=== PATIENT | male | born 1955 | race Caucasian/White ===

== ENCOUNTER 2022-04-28 01:45 | Day surgery (SDC) | payer MEDICARE, SELFPAY ==
[2022-04-12 13:19] VITALS: BMI 29.0
--- NOTE | 2022-04-27 14:29 | PM.HPGS ---
History of Present Illness History of Present Illness Consent: Risks, benefits, and alternatives have been discussed and questions answered. Patient agrees to proceed with procedure. Chief complaint: hx of colon polyps Narrative: Jose Miguel Bear is a 66 year old male Who was referred for colon cancer screening. He had a polyp removed about 5 years ago. He also has had polyps prior to that. Review of Systems Review of Systems: All systems reviewed & are unremarkable except as noted in HPI and below PMFSH Social History Social History Smoking status: Never smoker Drinks per week: 3 Substance use: never Substance use type: does not use Living arrangements: with family Spiritual care concerns: No Meds Home Medications and Allergies Home Medications Medication Instructions Recorded Confirmed Type sodium sul 1.479 gram-potas ch See Rx Instructions PO PER PKG DIR 03/11/22 04/28/22 Rx 0.188 gram-magnes sul 0.225 gram #24 tabs tablet (Sutab) amlodipine 10 mg tablet 10 mg PO DAILY 04/12/22 04/12/22 History dorzolamide 22.3 mg-timolol 6.8 22.3 ml EACH EYE DAILY 04/12/22 04/12/22 History mg/mL eye drops irbesartan 300 mg tablet 300 mg PO DAILY 04/12/22 04/12/22 History spironolactone 300 mg PO DAILY 04/12/22 04/12/22 History Allergies Allergy/AdvReac Type Severity Reaction Status Date / Time No Known Allergies Allergy Verified 04/28/22 06:21 Exam Resp: Auscultation: clear to auscultation bilaterally Cardio: Rate: regular rate Rhythm: regular rhythm GI: GI Palp: Yes Soft to palpation and No Tenderness to palpation present (GI) Assessment and Plan Assessment and plan (1) Colon cancer screening: Code(s): Z12.11 - Encounter for screening for malignant neoplasm of colon Status: Acute Assessment and Plan: Colonoscopy with possible biopsy or polypectomy or cautery or injection of substances.
[2022-04-28 06:23] VITALS: BP 120/71; PULSE 71; RESP 20; TEMP 36.5; O2SAT 97; BMI 29.0
[2022-04-28] MEDS: LACTATED RINGERS 1,000 ML 150 ML IV CONT (06:34)
--- NOTE | 2022-04-28 07:26 | P.PNAN_ITS ---
Anes - Initial Pre Proc Eval Procedure: Operation Date: 04/28/22 07:30 Proposed Procedures p Screening Colonoscopy - Jorge Garcia MD Date/Time: 04/28/22 07:26 Surgeon: Jorge Garcia MD Pre Op Diagnosis: hx of colon polyps Patient Data Age: 66 Gender: M Height: 1.85 m Weight: 99.7 kg Last Vital Signs Temp 97.7 F 04/28/22 06:23 Pulse 71 04/28/22 06:23 Resp 20 04/28/22 06:23 BP 120/71 04/28/22 06:23 Pulse Ox 97 04/28/22 06:23 O2 Del Method Room Air 04/28/22 06:23 Allergies Allergy/AdvReac Type Severity Reaction Status Date / Time No Known Allergies Allergy Verified 04/28/22 06:21 Home Medications Medication Instructions Recorded Confirmed Type sodium sul 1.479 gram-potas ch See Rx Instructions PO PER PKG DIR 03/11/22 04/28/22 Rx 0.188 gram-magnes sul 0.225 gram #24 tabs tablet (Sutab) amlodipine 10 mg tablet 10 mg PO DAILY 04/12/22 04/12/22 History dorzolamide 22.3 mg-timolol 6.8 22.3 ml EACH EYE DAILY 04/12/22 04/12/22 History mg/mL eye drops irbesartan 300 mg tablet 300 mg PO DAILY 04/12/22 04/12/22 History spironolactone 300 mg PO DAILY 04/12/22 04/12/22 History Patient hx anesthesia problems: none Family hx anesthesia problems: none Results Review: All pre-operative results and documents have been reviewed as part of the pre- operative evaluation. [facility] Social History Social History Smoking status: Never smoker Drinks per week: 3 Substance use: never Substance use type: does not use Living arrangements: with family Spiritual care concerns: No Anes - Eval Final PreProcedure Day of Procedure 04/28/22 07:26 Patient weight: overweight Heart: regular rate and rhythm Lungs: clear to auscultation Airway: Mallampati scale class II Neurological: alert and oriented Last oral intake: >/= 8 hours ASA classification: III Emergent: no Anesthetic plan: proceed Anesthesia type and monitoring: general GIVS and standard monitoring Results Review: All pre-operative results and documents have been reviewed as part of the pre- operative evaluation. Informed Consent: The patient's anesthetic plan and its attendant risks and benefits were discussed with the patient/family/POA. Questions were solicited and answers provided to the satisfaction of the patient/family/POA.
[2022-04-28] MEDS: SIMETHICONE ORAL SUSPENSION 20 MG/0.3 ML 30 ML BOTTLE 0.6 ML IRRIGATION (07:42)
[2022-04-28 07:56] VITALS: BP 87/49; PULSE 75; RESP 17; O2SAT 95
[2022-04-28 08:06] VITALS: BP 99/60; PULSE 60; RESP 19; O2SAT 100
[2022-04-28 08:16] VITALS: BP 108/73; PULSE 61; RESP 18; O2SAT 100
== END 2022-04-28 08:20 | disposition home or self-care (01) ==
PROVIDERS: PCP Emergency Medicine; Visit Provider Internal Medicine Gastroenterology
PROC: 0DJD8ZZ Inspection of Lower Intestinal Tract, Via Natural or Artificial Opening Endoscopic (ICD-10-PCS; CPT 45378; principal; 2022-04-28 07:30)
DX: Z12.11 Encounter for screening for malignant neoplasm of colon (principal); K57.30 Diverticulosis of large intestine without perforation or abscess without bleeding; K62.1 Rectal polyp
CPT/HCPCS: 45385; 45380; 88305; J2704; J7120

== ENCOUNTER → 2023-04-11 11:42 | Outpatient (CLI) | payer MEDICARE, SELFPAY ==
--- NOTE | ~2023-04-11 | XR_ITS ---
XR chest 2V 04/11/2023 12:03 Indication: Pleurisy. Right scapular pain Procedure: 2 view chest Comparison: No prior studies for comparison. Findings: Heart size normal. No focal air space disease, pulmonary edema, pleural effusion or suspect ed pneumothorax. There is scalloping of the left diaphragm. Impression: 1: No acute cardiopulmonary disease. Reviewed, dictated and finalized at location A. Impression: 1: No acute cardiopulmonary disease.
== END ==
PROVIDERS: PCP Emergency Medicine; Visit Provider Emergency Medicine
DX: R09.1 Pleurisy (principal)
CPT/HCPCS: 71046

== ENCOUNTER 2023-04-11 11:54 | Outpatient (CLI) | payer MEDICARE, SELFPAY ==
[2023-04-11 19:59] LABS: D Dimer 0.98 ug/mL (<0.48)
== END 2023-04-11 11:55 | disposition home or self-care (01) ==
LOC: ANHGOSHLAB 11:56
PROVIDERS: PCP Emergency Medicine; Visit Provider Emergency Medicine
DX: R09.1 Pleurisy (principal)
CPT/HCPCS: 36415; 85380

== ENCOUNTER 2023-04-12 16:28 | Outpatient (CLI) | payer MEDICARE, SELFPAY ==
--- NOTE | ~2023-04-12 | CT_ITS ---
EXAMINATION: CTA chest PE protocol DATE: 04/12/2023 17:06 CDT INDICATION: Chest pain with respiration. Elevated d-dimer. TECHNIQUE: Computed tomographic angiography (CTA) of the chest was performed with 100 mL Omnipaque-35 0 intravenous contrast. The dose-length product was 582.54 mGy-cm. Maximum intensity projection 3D-re constructions of the aorta and other arteries were constructed by the technologist on a separate work station. COMPARISON: No prior studies for comparison. FINDINGS: Study is technically adequate. There is pulmonary embolism involving right upper lobe subse gmental pulmonary arteries, small thrombus burden. Heart size normal. No thoracic lymphadenopathy. No significant pleural or pericardial effusion. There is nodular thickening of the adrenal glands, like ly due to bilateral adenomas. There is focal eventration of the left diaphragm. No endobronchial lesi ons. No thoracic lymphadenopathy. No focal airspace disease. No pneumothorax. No endobronchial lesion s. IMPRESSION: 1. Pulmonary embolism right upper lobe subsegmental pulmonary arteries, small thrombus burden. Reviewed, dictated and finalized at location A. IMPRESSION: 1. Pulmonary embolism right upper lobe subsegmental pulmonary arteries, small t hrombus burden.
[2023-04-12 16:51] LABS: Estimated Glomerular Filt Rate 55
== END 2023-04-12 16:29 | disposition home or self-care (01) ==
PROVIDERS: PCP Emergency Medicine; Visit Provider Emergency Medicine
DX: I26.99 Other pulmonary embolism without acute cor pulmonale (principal)
CPT/HCPCS: 71275; Q9967

== ENCOUNTER 2023-08-31 10:40 | Outpatient (CLI) | payer MEDICARE, SELFPAY ==
--- NOTE | ~2023-08-31 | US_ITS ---
EXAMINATION: US venous doppler [facility] DATE: 08/31/2023 11:36 INDICATION: Left lower limb pain. TECHNIQUE: Grayscale ultrasound images without and with compression and Doppler ultrasound images of the left lower extremity veins were obtained. COMPARISON: None. FINDINGS: The visualized portions of left common femoral vein, profunda (deep) femoral vein, femoral vein, popl iteal vein, peroneal veins, posterior tibial veins, and greater saphenous vein outflow are patent. IMPRESSION: 1. No deep venous thrombosis. Reviewed, dictated and finalized at location A. [employer] SALES AGENT
== END 2023-08-31 10:41 | disposition home or self-care (01) ==
PROVIDERS: PCP Emergency Medicine
DX: M79.662 Pain in left lower leg (principal)
CPT/HCPCS: 93971

== ENCOUNTER 2025-02-19 11:37 | Outpatient (CLI) | payer MEDICARE, SELFPAY ==
--- NOTE | ~2025-02-19 | CT_ITS ---
EXAMINATION: CTA chest PE protocol DATE: 02/19/2025 12:35 CDT INDICATION: Chest pain with history of pulmonary embolism. TECHNIQUE: Computed tomographic angiography (CTA) of the chest was performed with 100 mL Omnipaque-35 0 intravenous contrast. The dose-length product was 674.69 mGy-cm. Maximum intensity projection 3D-re constructions of the aorta and other arteries were constructed by the technologist on a separate work station. COMPARISON: CT dated 04/12/2023. FINDINGS: No significant pleural or pericardial abnormality. Small focal Bochdalek hernia containing fat on the left. There is a parapelvic cyst on the left. Fatty infiltration of the liver. No thoracic lymphadenopathy. No significant vascular abnormality of the aorta. Study is technically adequate wit hout evidence for pulmonary embolism. Small hiatal hernia. No endobronchial lesions. No pneumothorax. No focal airspace consolidation. There is nodular adrenal thickening bilaterally, likely related to small underlying adrenal adenomas without significant change from prior study. There is diffuse idiopathic skeletal hyperostosis (DISH) of the thoracic spine. IMPRESSION: 1. No acute cardiopulmonary disease. No evidence for pulmonary embolism. Reviewed, dictated and finalized at location A.
--- OUTSIDE RECORDS SUMMARY | 2025-02-19 11:43 | XMS_ITS | Clinical Summary ---
Author Organization [facility] Address [address] [place] [address] Phone Care Team Providers Care Harvester Operator Name Role Phone Zhao Mayes Primary Care Provider [phone] Jostin Washburn MD Unavailable Allergies Active Allergy Reactions Criticality Noted Date Comments Brimonidine Tartrate-Timolol Other (see Comments) Low 10/24/2018 Also causes burning Netarsudil Other (see Comments) Low 10/24/2018 Redness Also causing burning Medications dorzolamide-stella olol (COSOPT) 22.3-6.8 MG/ML Solution INSTILL 1 DROP INTO BOTH EYES TWICE A DAY 03/23/2023 Active irbesartan (AVAPRO) 300 MG Tablet Take 300 mg by mouth daily. 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 Immunizations Immunization Administration Dates Next Due Covid-19, Mrna, Lnp-s, Pf, 1 00 Mcg Or 50 Mcg Dose (MODERNA) 11/29/2020,10/31/2020 Influenza, Seasonal, Injectable, Undefined 09/20 TDAP Vaccine 09/20/2013 Family History Medical History Relation Name Comments Diabetes Brother Heart Attack Father Colon Cancer Mother Liver Cancer Mother Relation Name Status Comments Brother Alive Father Mother Sister 1 Alive Sister 2 Alive Sister 3 Alive Social History Tobacco Use Types Packs/Day Years Used Date Smoking Tobacco: Former Cigarettes Q uit: 2000 Smokeless Tobacco: Never Tobacco Cessation:Counseling Given: Not Answered Alcohol Use Standard Drinks/Week Comments Yes 4 (1 standard drink = 0.6 oz pur e alcohol) Sex and Gender Information Value Date Recorded Sex Assigned at Not on file Legal Sex Male 11:35 AM CDT Gender Identity Not on file Sexual Orientation Not on file Last Filed Vital Signs Vital Sign Reading Time Taken Comments Blood Pressure 124/80 10/11/2024 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 Pulse 79 10/11/2024 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 Temperature 37 C (98.6 F) 10/11/2024 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 Respiratory Rate 18 10/11/2024 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 Oxygen Saturation 96% 10/11/2024 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 Inhaled Oxygen Concentration - - Weight 109.3 kg (241 lb) 10/11/2024 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 Height 185.4 cm (6' 1) 10/11/2024 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 Body Mass Index 31.8 10/11/2024 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 Plan of Treatment Health Maintenance Due Date Last Done Comments Hepatitis C Virus (HCV) Screening 1955 Pneumococcal Immunization (5 0+ years) (1 of 2 - PCV) 1974 Zoster Immunization (1 of 2) 1974 Colonoscopy 2000 Colorectal Cancer Screening 2000 Cologuard 2005 Immunochemical Fecal Occult Blood 2005 Hepatitis B Immunization (1 of 3 - Risk 3-dose series) 2015 Respiratory Syncytial Virus (RSV) Immunization (Adult) (1 - Risk 60-74 years 1-dose series) 2015 AAA Screening Ultrasound 2020 SARS-COV-2 Immunization (3 - Moderna risk series) 12/27/2020 11/29/2020, 10/31/2020 Td Immunization Every 10 Yea rs (Adults With 1 Tdap) 09/20/2023 09/20/2013 Influenza Immunization (Seas on Ended) 2025 09/20/2013 DTaP/Tdap/Td Immunization Discontinued 09/20/2013 Human Papillomavirus (HPV) Immunization Aged Out No longer eligible based on patient's age to complete this topic Meningococcal Immunization (ACWY) Aged Out No longer eligible based on patient's age to complete this topic Rotavirus Immunization Aged Out No lo nger eligible based on patient's age to complete this topic Insurance MEDICARE C [employer] Care Teams Harvester Operator Relationship Specialty Start Date End Date Zhao Mayes [address] [place] [address] PCP - General Family Medicine 04/19/23 Jostin Washburn MD [address] [place] [address] Consulting Physician Oncology 10/11/24
--- OUTSIDE RECORDS SUMMARY | 2025-02-19 11:44 | XMS_ITS | Referral Summary ---
Author Organization [facility] Address [address] [place] [address] Care Team Providers Care Planer Operator / Grader Name Role Phone Zhao Mayes MD Primary Care Provider [phone] Allergies Active Allergy Reactions Criticality Noted Date Comments Brimonidine-Timolol Redness Low 10/24/2018 Also causes burning Netarsudil Redness Low 10/24/2018 Also causing burning Medications aspirin 81 mg tabletIndicatio ns:heart health Take 81 mg by mouth mining teacher before breakfast Active fenofibrate (TRIGLIDE) 160 mg tabletIndicatio ns:hyperlipidem ia Take 160 mg by mouth daily with breakfast Active amLODIPine (NORVASC) 10 mg tabletIndicatio ns:hypertension Take 10 mg by mouth mining teacher before breakfast 1 Active spironolactone (ALDACTONE) 50 mg tabletIndicatio ns:hypertension Take 50 mg by mouth mining teacher before breakfast 1 Active irbesartan (AVAPRO) 300 mg tabletIndicatio ns:hypertension Take 300 mg by mouth mining teacher before breakfast 1 Active Sutab 1.479-0.188- 0.225 gram tablet 2 Active dorzolamide-stella oloL (COSOPT) 22.3-6.8 mg/mL ophthalmic solution Administer 1 drop into both eyes 2 (two) times a day 10 mL 11 2 Active Active Problems Problem Noted Date Diagnosed Date Combined forms of age-related cataract of both e yes 06/22/2022 Assessment & Plan (06/22/2022 10:55 AM CDT): Approaching VS right eye (OD) NVS OS Mrx dispensed Disorder of filtering bleb 11/26/2021 Assessment & Plan (12/01/2021 3:04 PM CDT): Nice response to needling - will hold on MMC to avoid making conj overly ischemic. Pred to QID now Cont with glc gtts F/U with me 3-4 weeks to start pred taper Change lumigan to xal Qhs OD - pt request cost Assessment & Plan (11/26/2021 12:02 PM DEPLOYMENT TECHNICIAN): IOP OD too high, XEN OS looks and working great rba discussed, rec yag then needling IOP immediately 14.5mmHg OD with moderate bleb. Some MAHAD with mild reflux into AC. Pred Q2hrs. Hold on MMC and if there is hyperemia can add at next visit as long as there is a bleb. F/U 1 week Postop check 01/16/2019 Assessment & Plan (02/06/2019 2:00 PM CDT): POW3 PLACEMENT GLAUCOMA DRAINAGE IMPLANT - XEN with MMC - Right Postoperative instructions were given. The patient is to use: Cont PF QID OD - taper when he returns. D/C atropine Cont holding glaucoma drops OD Cont glaucoma drops OS no eye rubbing Signs, symptoms of retinal detachment, tear, hole, and endophthalmitis were reviewed and the patient is to call immediately for concerns. We discussed that things should improve until they stabilize. Should there be any worsening of pain, vision, or redness the patient is to call. F/U 4-6 weeks For other eye monitor IOP borderline Assessment & Plan (01/23/2019 9:00 AM CDT): POW1 PLACEMENT GLAUCOMA DRAINAGE IMPLANT - XEN with MMC - Right Still hypotonus on atropine. AC shallow with I-K touch peripherally and 2 corneal widths depth centrally. IOP 05. Diffuse bleb. No leak. Will continue present management. Postoperative instructions were given. The patient is to use: Stop oflox Cont PF QID OD Cont atropine BID OD Cont holding glaucoma drops OD Cont glaucoma drops OS Light activity, shield at night, no eye rubbing - patient compliant Signs, symptoms of retinal detachment, tear, hole, and endophthalmitis were reviewed and the patient is to call immediately for concerns. We discussed that things should improve until they stabilize. Should there be any worsening of pain, vision, or redness the patient is to call. Followup 1-2 weeks or sooner prn issues. For other eye, IOP acceptable at this time given less severe disease. Monitor. Assessment & Plan (01/18/2019 10:36 AM CDT): POD1 PLACEMENT GLAUCOMA DRAINAGE IMPLANT - XEN with MMC - Right Postoperative instructions were given. The patient is to use: ofloxacin QID OD Durezol QID OD HOLD glaucoma drops OD Cont glaucoma drops OS Atropine BID and light activity Patient is to wear the shield at bedtime X 1 week. Signs, symptoms of retinal detachment, tear, hole, and endophthalmitis were reviewed and the patient is to call immediately for concerns. We discussed that things should improve until they stabilize. Should there be any worsening of pain, vision, or redness the patient is to call. Followup 1 week as scheduled or sooner prn issues. For other eye, IOP acceptable at this time given less severe disease. Monitor. Primary open angle glaucoma of right eye, severe stage 11/27/2018 Overview (02/04/2022): SP Xen MMC OD 2018, SP Xen MMC OS 2019 S/p YAG/re-needling right eye (OD) 11/26/21 S/p Molteno OD 01/27/22 Assessment & Plan (07/13/2022 11:28 AM CDT): Doing well after molteno OD. New HVF baseline OD today with paracentral stable island of vision. IOP goal low to mid teens. Cont cosopt BID OU F/U Dr. Mendez 3-4 mo. OK to do phaco alone with Dr. Mendez or here for phaco ECP. F/U with me prn Assessment & Plan (06/22/2022 10:53 AM CDT): Excellent control of intraocular pressure (IOP) CPmeds Follow up Bry Assessment & Plan (03/30/2022 8:21 AM CDT): Mac OCT flat OD. Vision near pre-op level through Pinhole. VF was affecting fixation. NS not bad enough to account for vision but it is becomming VS. He does not want surgery for this. MRx in 6 weeks. If IOP > 18 please start one agent back F/U with me in 2-3 mo HVF (10-2) OD Assessment & Plan (03/02/2022 8:29 AM CDT): Tube open, IOP low but no choroidals, bleb is ideal over molteno plate OD. D/C brimonidine OD - cont cosopt as this may help prevent encapsulation. When he returns if IOP still below 10 can change cosopt to brim OD. Taper pred over 3 weeks - IOP check after taper F/U with me IOP check in 4-6 weeks. Assessment & Plan (02/04/2022 8:22 AM CDT): POW #1 s/p Placement Glaucoma Drainage Implant With Scleral Patch Graft - Molteno - Right Today VA OD and IOP OD - Doing well - continue Durezol QID until it runs out, then switch to prednisolone right eye (OD) - send script - stop Moxifloxacin QID OD - Continue cosopt BID OU until tube opens Reviewed signs/symptoms endophthalmitis, RT/RD; patient to call immediately if any worsening vision, pain, redness, flashes/floaters/curtains RTC 3-4 weeks Assessment & Plan (01/28/2022 8:03 AM CDT): POD #1 s/p Placement Glaucoma Drainage Implant With Scleral Patch Graft - Molteno - Right Today VA OD 20/300 and IOP OD 27 - Doing well - Durezol QID OD - Moxifloxacin QID OD - Restart cosopt BID OD - Reviewed signs/symptoms endophthalmitis, RT/RD; patient to call immediately if any worsening vision, pain, redness, flashes/floaters/curtains - No lifting/bending/swimming. Silva shield while sleeping, protective eyewear during day. - RTC 1 week Assessment & Plan (01/14/2022 8:09 AM CDT): SP Xen MMC OD 2018, SP Xen MMC OS 2019 6 week follow-up after YAG/re-needling right eye (OD) - had good initial response with elevation of bleb;but now thick bleb, much more scar than OS. Do not rec needling or revision. RBA discussed, proceed with molteno OD. Diamox 500 mg BID Assessment & Plan (11/26/2021 12:02 PM DEPLOYMENT TECHNICIAN): RBA needling OD discussed. Assessment & Plan (10/15/2021 10:02 AM DEPLOYMENT TECHNICIAN): Presents for HVF/OCT with ganglion cell layer (GCL) - status post (s/p) Xen w/ MMC left eye (OS) - status post (s/p) Xen with MMC right eye (OD) - Today, IOP still too high right eye (OD) - cos2/2, dorz 2/0, lumigan 1/0 - poor tolerance of brimonidine - bleb appearance left eye (OS) better then right eye (OD); flat without much filtration right eye (OD) - non injected Goncalves visual field (HVF) 10/14/21 right eye (OD): reliable, testing fluctuation, slightly worse dense superior and inferior arcuate, splitting fixation left eye (OS): stable INS, superior scatter/partial arcuate pattern Plan: RBA discussed, pt agrees for needling - will yag lumen first OD. If no effect, proceed with phaco bleb revision OD as he is more symptomatic with NS F/U needling OD, IOLM, please read glasses. Assessment & Plan (05/12/2021 2:13 PM CDT): IOP OD too high, on lumigan and timolol. Cannot tolerate brimonidine. Will start dorzolamide BID OD. If IOP not in mid to low teens recommend needling that day. If IOP still not at goal, recommend open conj revision OD given how OS is working well. F/U 4-6 weeks possible needling OD Assessment & Plan (06/17/2020 10:07 AM CDT): Was on 4 classes prior to surgery. IOP near goal on 1 class OS - but given such a young age for severity of disease recommend cosopt BID OU - D/C narajose ramon. Discussed needling - since he does well with drops her prefers this over a procedure. F/U with me in 6 weeks - if IOP in mid teens OK to follow with Dr. Mendez. Assessment & Plan (05/03/2019 7:59 AM CDT): S/p ab externo XEN/MMC 01/17/19 with early hypotony, now resolved Off PF, IOP 12 at goal IOP OS too high, plan XEN - good IOP today, CPM on 3 classes Assessment & Plan (03/06/2019 12:53 PM CDT): --S/p ab externo XEN/MMC 01/17/19 with early hypotony, now resolved Taper PF over 4 weeks. F/U 8 weeks to decide on IOP OS. Primary open angle glaucoma (POAG) of left eye, moderate stage 10/24/2018 Assessment & Plan (06/22/2022 10:54 AM CDT): Excellent intraocular pressure (IOP) left eye (OS) CPmeds Assessment & Plan (10/15/2021 9:52 AM DEPLOYMENT TECHNICIAN): Assessment & Plan (06/23/2021 7:50 AM CDT): IOP near goal - does have some blepharitis - may be drop related but pt would like to cont with dorz. Does not arnie brim. Recheck HVF/OCT. If worse recommend needling - may need open conj revision. Otherwise ok to obs unless IOP creeps higher. F/U 3 mo HVF/OCT with GCL Assessment & Plan (07/29/2020 9:57 AM DEPLOYMENT TECHNICIAN): IOP now near goal OU on cosopt BID OU. Blebs look stable - do not recommend needling now. Discussed that if IOP rises >18mmHg ok to add PGA. If IOP still above goal please send back - can consider tube shunt vs bleb revision in the OR. Discussed this with pt. F/U Dr. Mendez for glaucoma monitoring in 4 mo. Assessment & Plan (01/22/2020 11:35 AM CDT): S/p Xen MMC 11/21/19 OS - Continue to taper off steroids - bleb looks ideal - may have some steroid response. For OD - prefer IOP in mid teens, OS may be ok in high teens. OK to add medications 1 class at a time to goal. Will have patient follow with Dr. Mendez given COVID. Please check HVF at the next visit to re-establish new baseline. F/U with me prn F/U Dr. Mendez 3 mo IOP check. Assessment & Plan (11/29/2019 8:03 AM CDT): POW1 Xen MMC OS Has had slow leak at suture site, seen earlier this week for blurring 2/2 AC heme Leak resolved at W1, no hyphema. Doing well Postoperative instructions were given. The patient is to use: Durezol QID change to PF when out then taper after next visit if conj quiet Patient is to wear the shield at bedtime X 1 week. Signs, symptoms of retinal detachment, tear, hole, and endophthalmitis were reviewed and the patient is to call immediately for concerns. We discussed that things should improve until they stabilize. Should there be any worsening of pain, vision, or redness the patient is to call. F/U 1 month Assessment & Plan (11/26/2019 4:29 PM CDT): POW1 Xen MMC OS Early return today for blurred vision after walking on the treadmill Perhaps some heme in AC based on deposit on inferior cornea but no active bleeding or hyphema. Slow leak at suture site still - keep appointment on . If still active start ointment. Postoperative instructions were given. The patient is to use: Moxifloxacin QID X 1 week Durezol QID Patient is to wear the shield at bedtime X 1 week. Signs, symptoms of retinal detachment, tear, hole, and endophthalmitis were reviewed and the patient is to call immediately for concerns. We discussed that things should improve until they stabilize. Should there be any worsening of pain, vision, or redness the patient is to call. Other eye is status post (s/p) xen (01/2019). Check IOP at W1 after starting lumigan Assessment & Plan (11/22/2019 8:00 AM DEPLOYMENT TECHNICIAN): POD1 Xen MMC OS Postoperative instructions were given. The patient is to use: Moxifloxacin QID X 1 week Durezol QID Will not start ointment unless there is persistent leak Patient is to wear the shield at bedtime X 1 week. Signs, symptoms of retinal detachment, tear, hole, and endophthalmitis were reviewed and the patient is to call immediately for concerns. We discussed that things should improve until they stabilize. Should there be any worsening of pain, vision, or redness the patient is to call. Other eye is status post (s/p) xen (01/2019). Check IOP after starting lumigan Assessment & Plan (09/04/2019 2:19 PM DEPLOYMENT TECHNICIAN): OD: S/p open conj XEN 01/17/19 Off drops and IOP elevated today relative to prior Add Lumigan OD OS: IOP too high on medications again today given optic nerve and VF progression from OD - goal is to prevent vision loss. Plan open conj XEN - ab externo like [employer] - Consulting discussed HVF today stable both eyes OCT today fluctuating, overall stable Assessment & Plan (05/03/2019 7:59 AM CDT): IOP controlled on 3 classes Follow 4 months for IOP check, consider XEN if IOP elevated Assessment & Plan (03/06/2019 12:54 PM CDT): IOP borderline. May need surgery. Likely above goal - consider XEN if doing well at next visit. Prostate cancer 03/03/2018 Social History Tobacco Use Types Packs/Day Years Used Date Smoking Tobacco: Never Smokeless Tobacco: Never Alcohol Use Standard Drinks/Week Comments Yes 5 (1 standard drink = 0.6 oz pur e alcohol) AUDIT-C Answer Date Recorded Q1: How often do you have a drink containing alc ohol? 2-3 times a week 01/18/2022 Q2: How many drinks containi ng alcohol do you have on a typical day when you are drinking? 1 or 2 01/18/2022 Q3: How often do you have si x or more drinks on one occasion? Never 01/18/2022 Sex and Gender Information Value Date Recorded Sex Assigned at Not on file Legal Sex Male 8:39 AM CDT Gender Identity Not on file Sexual Orientation Not on file Last Filed Vital Signs Vital Sign Reading Time Taken Comments Blood Pressure 118/81 01/27/2022 12:00 PM CDT Pulse 57 01/27/2022 12:05 PM CDT Temperature 36 C (96.8 F) 01/27/2022 11:48 AM CDT Respiratory Rate 9 01/27/2022 11:55 AM CDT Oxygen Saturation 100% 01/27/2022 12:05 PM CDT Inhaled Oxygen Concentration - - Weight 106.6 kg (235 lb) 01/18/2022 9:35 AM CDT Height 185.4 cm (6' 1) 01/18/2022 9:35 AM CDT Body Mass Index 31 01/18/2022 9:35 AM CDT Plan of Treatment Not on file Medical Devices Implanted Type Area Dopeman Device Identifier Shelf Expiration Date Model / Serial / Lot [employer] 5513-001 Xen 150um 45um 6mm Treatment System Preload Injector Intraocular Latex Free - [id number] - [id number] Implanted:Qty: 1 on 01/17/2019 by Ian Londono MD at [facility] Other - see comments Right: Eye [employer] [id number] 05/19/2021 5513-001 / [id number] / [id number] Description:Xen Gel stent [employer] 5513-001 Xen 150um 45um 6mm Treatment System Preload Injector Intraocular Latex Free - [id number] - [id number] Implanted:Qty: 1 on 11/21/2019 by Ian Londono MD at [facility] Other - see comments Left: Eye [employer] [id number] 07/19/2022 5513-001 / [id number] / [id number] Description:XEN GEL STENT [employer] [id number] 245sq Mm Drain Glaucoma M3-245 - [id number] - [id number] Implanted:Qty: 1 on 01/27/2022 by Ian Londono MD at [facility] Other - see comments Right: Eye [employer] [id number] 04/29/2026 M3-245 / 510 / [id number] Description:Molteno drainage device [employer] Tutoplast Iopatch 1x.6cm Dehydrate Processed Allograft Graft Soft [id number] - [id number] - [id number] Implanted:Qty: 1 on 01/27/2022 by Ian Londono MD at [facility] Other - see comments Right: Eye [employer] 06/18/2026 [id number] / [id number] / [id number] Explanted Type Area Dopeman Device Identifier Shelf Expiration Date Model / Serial / Lot [employer] 5513-001 Xen 150um 45um 6mm Treatment System Preload Injector Intraocular Latex Free - [id number] - [id number] Implanted:Qty: 1 Explanted:Qty: 1 on 01/17/2019 by Ian Londono MD at [facility] Shunt Right: Eye [employer] [id number] 09/18/2021 5513-001 / [id number] / [id number] Procedures Procedure Name Priority Date/Time Associated Diagnosis Comments PSA DIAGNOSTIC Routine 02/03/2023 10:22 AM CDT Prostate cancer (HCC) from Last 3 Months or Most Recently Relevant to Health Maintenance Results * PSA diagnostic (02/03/2023 10:22 AM CDT) PSA <0.1 0.0 - 4.0 ng/mL [facility] - 01 Comment: Erinaldo ECLIA methodology. According to the [place] [employer], Serum PSA should decrease and remain at undetectable levels after radical prostatectomy. The AUA defines biochemical recurrence as an initial PSA value 0.2 ng/mL or greater followed by a subsequent confirmatory PSA value 0.2 ng/mL or greater. Values obtained with different assay methods or kits cannot be used interchangeably. Results cannot be interpreted as absolute evidence of the presence or absence of malignant disease. Blood 02/03/2023 10:2 2 AM CDT 02/03/2023 Narrative [facility] - 02/04/2023 11:07 PM CDT Performed at: 01 - [facility] [id number] Accounts Adjustable Clerk: Tavon Castaneda PhD, Phone: [phone] Roland Le MD LAB BLOOD ORDERABLES Final Res ult [facility] - 01 from Last 3 Months or Most Recently Relevant to Health Maintenance Insurance [facility] Address: [address] [address] [place] [address] [facility]O Address: [address] [address] [place] [address] [facility] [employer] [facility]IC[facility] Advance Directives For more information, please contact: [phone] * Full Code (Latest Code Status on File) Date Activated Date Inactivated Comments 11/20/2019 10:21 PM 11/21/2019 6:44 PM * Full Code Date Activated Date Inactivated Comments 03/02/2018 10:07 AM 03/03/2018 4:29 PM Care Teams Planer Operator / Grader Relationship Specialty Start Date End Date Zhao Mayes MD PCP - General 01/02/18
--- OUTSIDE RECORDS SUMMARY | 2025-02-19 11:44 | XMS_ITS | Continuity of Care Document ---
Author Organization [facility] Address [address] [place] [address] [place] [address] Phone Care Team Providers Care Lang Interpreter Name Role Phone Zhao Mayes MD Unavailable Unavailable Allergies, Adverse Reactions, Alerts Substance Reaction Status Criticality No Known Allergies Active No Inform ation Medications Medication Instructions Dosage Effective Dates (start - stop) Status Comments irbesartan 300 mg-hydrochlorothiaz nevaeh 12.5 mg tablet take 1 tablet by oral route every day 1.00 tablet - Active Procedures Procedure Date OFFICE/OUTPATIENT VISIT, EST OFFICE/OUTPATIENT VISIT, EST PREV VISIT, EST, 65 & OVER OFFICE/OUTPATIENT VISIT, EST PREV VISIT, EST, 65 & OVER OFFICE/OUTPATIENT VISIT, EST OFFICE/OUTPATIENT VISIT, EST OFFICE/OUTPATIENT VISIT, EST OFFICE/OUTPATIENT VISIT, EST OFFICE/OUTPATIENT VISIT, EST OFFICE/OUTPATIENT VISIT, EST OFFICE/OUTPATIENT VISIT, EST PREV VISIT, EST, 65 & OVER OFFICE/OUTPATIENT VISIT, EST PREV VISIT, EST, 65 & OVER PREV VISIT, EST, 65 & OVER OFFICE/OUTPATIENT VISIT, EST OFFICE/OUTPATIENT VISIT, EST OFFICE/OUTPATIENT VISIT, EST PREV VISIT, EST, AGE 40-64 OFFICE/OUTPATIENT VISIT, EST PREV VISIT, EST, AGE 40-64 OFFICE/OUTPATIENT VISIT, EST PREV VISIT, EST, AGE 40-64 OFFICE/OUTPATIENT VISIT, EST OFFICE/OUTPATIENT VISIT, EST PREV VISIT, EST, AGE 40-64 OFFICE/OUTPATIENT VISIT, EST OFFICE/OUTPATIENT VISIT, EST OFFICE/OUTPATIENT VISIT, EST PREV VISIT, EST, AGE 40-64 Advance Directives Directive Yes / No Effective Date File Name No Information Encounters Encounter Description Practice Location Reason(s) For Visit Diagnoses Date Provider Providers Copied on Encounter OFFICE/OUTPA TIENT VISIT, [facility], [address] [place], [address], [place] tel:[phone] [facility] back pain1 (chief complaint) Ant chest-wall painPulmonary embolism 5 Gerber Perkins [address], [place], [place], [address] , [place]. [phone] OFFICE/OUTPA TIENT VISIT, [facility], [address] [place], [place], [address], [place] tel:[phone] [facility] HTN (chief complaint)HL P (chief complaint) Essential (primary) hypertensionMixed hyperlipidemia 5 Gerber Perkins [address], [place], [place], [address] , [place]. tel:[phone] PREV VISIT, [facility], 65 & OVER [facility], [address], [place], [place], [address], [place] tel:[phone] [facility] Medicine physical (chief complaint) Encounter for general adult medical exam w abnormal findingsEdemaPrim raghav OA of left handEssential (primary) hypertensionPulmo nary embolism 4 Gerber Churchill. [address], [place], [place], [address] , [place]. tel:[phone] PREV VISIT, EST, 65 & OVER [facility], [address], [place], [place], [address], [place] tel:[phone] [facility] Medicine physical (chief complaint) Encounter for general adult medical exam w abnormal findingsEssential (primary) hypertensionPulmo nary embolismPolyp of colonObstructive sleep apnea hypopnea 3 Gerber Churchill. [address], [place], [place], [address] , [place]. tel:[phone] OFFICE/OUTPA TIENT VISIT, [facility], [address], [place], [place], [address], [place] tel:[phone] [facility] PE (chief complaint) Pulmonary embolism 3 Gerber Churchill. [address], [place], [place], [address] , [place]. tel:[phone] OFFICE/OUTPA TIENT VISIT, [facility], [address], [place], [place], [address], [place] tel:[phone] [facility] PE (chief complaint)HT N (chief complaint) Pulmonary embolismEssential (primary) hypertension 3 Gerber Churchill. [address], [place], [place], [address] , [place]. tel:[phone] OFFICE/OUTPA TIENT VISIT, [facility], [address], [place], [place], [address], [place] tel:[phone] [facility] Medicine upper back pain1 (chief complaint) Other specified abnormal findings of blood chemistryChest pain on breathingPulmonar y embolism 3 Gerber Churchill. [address], [place], [place], [address] , [place]. tel:[phone] OFFICE/OUTPA TIENT VISIT, [facility], [address], [place], [place], [address], [place] tel:[phone] [facility] back pain1 (chief complaint) PleurisyChest pain on breathing 3 Mayes Zhao. [address], [place], [place], [address] , [place]. tel:[phone] OFFICE/OUTPA TIENT VISIT, EST [facility], [address], [place], [place], [address], [place] tel:[phone] [facility] HTN (chief complaint)co soniya polyp1 (chief complaint)sl eep apnea1 (chief complaint)HL P (chief complaint) Mixed hyperlipidemiaEss ential (primary) hypertensionPrima ry central sleep apneaPolyp of colon 3 Mayes Zhao. [address], [place], [place], [address] , [place]. tel:[phone] OFFICE/OUTPA TIENT VISIT, EST [facility], [address], [place], [address], [place] tel:[phone] [facility] HTN (chief complaint)HL P (chief complaint)ca lcium1 (chief complaint)we ight loss1 (chief complaint) Essential (primary) hypertensionHyper calcemiaMixed hyperlipidemiaAbn ormal weight loss 2 Gerber Churchill. [address], [place], [place], [address] , [place]. tel:[phone] PREV VISIT, EST, 65 & OVER [facility], [address], [place], [place], [address], [place] tel:[phone] [facility] Medicine physical (chief complaint) Encounter for general adult medical exam w abnormal findingsEssential (primary) hypertensionMixed hyperlipidemiaPol yp of colonMalignant neoplasm of prostateAbnormal weight lossFamily history of ischemic cardiac diseaseHypercalce yessy 2 Gerber Zhao. [address], [place], [place], [address] , [place]. tel:[phone] PREV VISIT, EST, 65 & OVER [facility], [address], [place], [place], [address], [place] tel:[phone] [facility] Medicine physical (chief complaint) Encounter for general adult medical examination without abnormal findings 2 Gerber Perkins [address], [place], [place], [address] , [place]. tel: [phone] PREV VISIT, EST, 65 & OVER [facility], [address], [place], [address], [place] tel:[phone] [facility] Medicine PHysical (chief complaint) Encounter for general adult medical examination without abnormal findings 1 Gerber Perkins [address], [place], [place], [address] , [place]. tel: [phone] OFFICE/OUTPA TIENT VISIT, [facility], [address], [place], [address], [place] tel:[phone] [facility] HTN (chief complaint)fa tigue1 (chief complaint) Essential (primary) hypertensionFatig ue 1 Gerber Perkins [address], [place], [address] , [place]. tel: [phone] OFFICE/OUTPA TIENT VISIT, [facility], [address], [place], [address], [place] tel:[phone] [facility] HTN (chief complaint)HL P (chief complaint) HyperlipidemiaEss ential (primary) hypertension 0 Gerber Perkins [address], [place], [place], [address] , [place]. tel: [phone] OFFICE/OUTPA TIENT VISIT, EST [facility], [address], [place], [address], [place] tel:[phone] [facility] HTN (chief complaint)HL P (chief complaint)co soniya polyp1 (chief complaint)pr ostate [place] (chief complaint) HyperlipidemiaEss ential (primary) hypertensionMalig nant neoplasm of prostatePolyp of colon Apr- 0 Gerber Perkins [address], [place], [place], [address] , [place]. tel: [phone] PREV VISIT, EST, AGE 40-64 [facility], [address], [place], [place], [address], [place] tel:[phone] [facility] Medicine PHysical (chief complaint) Encntr for general adult medical exam w/o abnormal findings Dec-0 2 0 Gerber Churchill. [address], [place], [place], [address] , [place]. tel:[phone] OFFICE/OUTPA TIENT VISIT, EST [facility], [address], [place], [address], [place] tel:[phone] [facility] HTN (chief complaint)Hi gh cholesterol. (chief complaint)we ight loss1 (chief complaint)co soniya polp1 (chief complaint) Essential (primary) hypertensionHyper lipidemiaPolyp of colonAbnormal weight lossMalignant neoplasm of prostate 9 Gerber Perkins [address], [place], [place], [address] , [place]. tel:[phone] Referring Provider: Tierra Hernandez [address], [place], [place], [address]. tel:[phone] PREV VISIT, EST, AGE 40-64 [facility], [address], [place], [place], [address], [place] tel:[phone] [facility] PHysical (chief complaint) Encntr for general adult medical exam w/o abnormal findings 9 Gerber Churchill. [address], [place], [place], [address] , [place]. tel:[phone] Referring Provider: Tierra Hernandez [address], [place], [place], [address]. tel:[phone] OFFICE/OUTPA TIENT VISIT, EST [facility], [address], [place], [place], [address], [place] tel:[phone] [facility] HLP (chief complaint)HT N (chief complaint)PS A (chief complaint) HyperlipidemiaEss ential (primary) hypertensionEleva lory prostate specific antigen [PSA]Body mass index (BMI) 30.0-30.9, adult 7 Gerber Churchill. [address], [place], [place], [address] , [place]. [phone] Referring Provider: Tierra [address], [place], [place], [address]. tel:[phone] PREV VISIT, EST, AGE 40-64 [facility], [address], [place], [place], [address], [place] [phone] [facility] PHysical (chief complaint) Encntr for general adult medical exam w/o abnormal findings Gerber Churchill. [address], [place], [address] , [place]. [phone] Referring Provider: Tierra [address], [place], [address]. tel:[phone] OFFICE/OUTPA TIENT VISIT, EST [facility], [address], [place], [address], [place] [phone] [facility] heel pain1 (chief complaint)HL P (chief complaint)Li alton (chief complaint) HyperlipidemiaLiv er diseasePain in left foot 6 Gerber Perkins [address], [place], [place], [address] , [place]. [phone] Referring Provider: Tierra Hernandez [address], [place], [place], [address]. tel:[phone] OFFICE/OUTPA TIENT VISIT, EST [facility], [address], [place], [address], [place] tel:[phone] [facility] HLP (chief complaint)LF T (chief complaint)HT N (chief complaint) Essential (primary) hypertensionHyper lipidemiaLiver disease 6 Gerber Churchill. [address], [place], [place], [address] , [place]. tel:[phone] Referring Provider: Tierra Hernandez [address], [place], [place], [address]. tel:[phone] PREV VISIT, EST, AGE 40-64 [facility], [address], [place], [place], [address], [place] tel:[phone] [facility] PHysical (chief complaint) Encntr for general adult medical exam w/o abnormal findings 6 Gerber Churchill. [address], [place], [place], [address] , [place]. [phone] Referring Provider: Tierra Hernandez [address], [place], [place], [address]. tel:[phone] OFFICE/OUTPA TIENT VISIT, [facility], [address], [place], [address], [place] tel:[phone] [facility] HTN (chief complaint)HL P (chief complaint)lo w T (chief complaint) Other and unspecified hyperlipidemiaOth er testicular hypofunctionDieta ry surveillance and counselingHyperte nsion, Unspecified Nov- 4 Gerber Churchill. [address], [place], [address] , [place]. [phone] Referring Provider: Tierra Hernandez [address], [place], [place], [address]. tel:[phone] OFFICE/OUTPA TIENT VISIT, [facility], [address], [place], [place], [address], [place] tel:[phone] [facility] HTN (chief complaint)lo w T (chief complaint)HL P (chief complaint)LF T (chief complaint) Dietary surveillance and counselingHyperte nsion, UnspecifiedOther testicular hypofunctionOther and unspecified hyperlipidemiaUns pecified chronic liver disease without mention of alcohol Dec- 3 Gerber Churchill. [address], [place], [place], [address] , [place]. [phone] Referring Provider: Tierra Hernandez [address], [place], [place], [address]. tel:[phone] OFFICE/OUTPA TIENT VISIT, EST [facility], [address], [place], [place], [address], tel:[phone] [facility] Medicine testosteone low (chief complaint)vi tamin D (chief complaint) Dietary surveillance and counselingFatigue / MalaiseUnspecifie d vitamin d deficiencyHyperte nsion, Unspecified May-0 3 Gerber Churchill. [address], [place], [place], [address] , [place]. [phone] Referring Provider: Tierra Hernandez [address], [place], [place], [address]. tel:[phone] PREV VISIT, EST, AGE 40-64 [facility], [address], [place], [place], [address], [place] tel:[phone] [facility] Physical (chief complaint) Dietary surveillance and counselingRoutine Medical ExamRoutine Medical Exam 3 Gerber Churchill. [address], [place], [place], [address] , [place]. [phone] Referring Provider: T[address] Hernandez [address], [place], [address]. tel:[phone] Family History Family Member Type Diagnosis Age At Onset Mother Problem (finding) Cancer, colon Sister Problem (finding) Alive and well Father Problem (finding) Coronary artery disease Payers Payer name Insurance type Covered libertarian ID Authorjuventinoa tibryn(s) [employer] Medicare CI [id number] Social History Type Description Quantity Date Captured Comments Alcohol Use Details 1 beer 2x weekly Caffeine Use Details Unknown Tobacco Use Status Never smoked tobacco 2024 Smoking Status Never smoker Sex Male Vital Signs Date / Time: Height Weight BMI Pulse Rate Blood Pressure Temperature Respiratory Rate Body Surface Area Head Circumference BMI percentile Pulse Ox Inhaled Ox 10:45 AM 73.00 in 235.80 lbs 31.1 1 kg/m eter (2) 66 /min 142/78 mm[Hg] 98.7 F 16 /min 98 21 Chief Complaint And Reason For Visit From encounter dated '02/19/2025 10:45'. back pain1 (chief complaint). Description: Pt c/o persistent dull ache right upper back area for one week Pt did travel to two weeks ago Pt denies any sob or leg pain Pt denies any worsening pain with breathing or movement. Pt has history of right upper lobe PE and he was on eliquis for one yearand he stopped 6 months ago. Pt denies any injury Plan Of Treatment Date Type Action Status Goal PSA. Due on due Goal FOBT. Due on due Goal Cognitive assessment. Due on due Goal Zoster vaccine. Due on due Goal Tdap. Due on due Goal Influenza vaccine. Due on due Goal Lipid panel. Due on 025 due Goal Pneumococcal vaccine. Due on due Goal Td vaccine. Due on due Goal Depression screening. Due on due Goal Sigmoidoscopy. Due on due Goal Pneumococcal vaccine. Due on due Goal Lipid panel. Due on 025 due Goal Influenza vaccine. Due on due Goal Tdap. Due on due Goal Zoster vaccine. Due on due Goal Sigmoidoscopy. Due on due Goal Depression screening. Due on due Goal Td vaccine. Due on due Goal PSA. Due on due Goal FOBT. Due on due Goal Cognitive assessment. Due on due Goal Cognitive assessment. Due on due Goal FOBT. Due on due Goal PSA. Due on due Goal Td vaccine. Due on due Goal Pneumococcal vaccine. Due on due Goal Lipid panel. Due on due Goal Influenza vaccine. Due on due Goal Tdap. Due on due Goal Zoster vaccine. Due on due Goal Sigmoidoscopy. Due on due Goal Depression screening. Due on due Goal Pneumococcal vaccine. Due on due Goal Lipid panel. Due on 023 due Goal FOBT. Due on due Goal Cognitive assessment. Due on due Goal Influenza vaccine. Due on due Goal Tdap. Due on due Goal Zoster vaccine. Due on due Goal Sigmoidoscopy. Due on due Goal Depression screening. Due on due Goal PSA. Due on due Goal Td vaccine. Due on due Goal Td vaccine. Due on due Goal PSA. Due on due Goal Depression screening. Due on due Goal Pneumococcal vaccine. Due on due Goal Lipid panel. Due on due Goal FOBT. Due on due Goal Cognitive assessment. Due on due Goal Influenza vaccine. Due on due Goal Tdap. Due on due Goal Zoster vaccine. Due on due Goal Sigmoidoscopy. Due on due Goal Sigmoidoscopy. Due on due Goal Zoster vaccine. Due on due Goal Tdap. Due on due Goal Influenza vaccine. Due on due Goal Cognitive assessment. Due on due Goal FOBT. Due on due Goal Td vaccine. Due on due Goal PSA. Due on due Goal Depression screening. Due on due Goal Pneumococcal vaccine. Due on due Goal Lipid panel. Due on due Goal Lipid panel. Due on due Goal Td vaccine. Due on due Goal FOBT. Due on due Goal Cognitive assessment. Due on due Goal Influenza vaccine. Due on due Goal Tdap. Due on due Goal Zoster vaccine. Due on due Goal Sigmoidoscopy. Due on due Goal PSA. Due on due Goal Depression screening. Due on due Goal Pneumococcal vaccine. Due on due Goal Pneumococcal vaccine. Due on due Goal Depression screening. Due on due Goal PSA. Due on due Goal Sigmoidoscopy. Due on due Goal Lipid panel. Due on due Goal Td vaccine. Due on due Goal FOBT. Due on due Goal Cognitive assessment. Due on due Goal Influenza vaccine. Due on due Goal Tdap. Due on due Goal Zoster vaccine. Due on due Goal Zoster vaccine. Due on due Goal Tdap. Due on due Goal Influenza vaccine. Due on due Goal Cognitive assessment. Due on due Goal FOBT. Due on due Goal Pneumococcal vaccine. Due on due Goal Depression screening. Due on due Goal PSA. Due on due Goal Sigmoidoscopy. Due on due Goal Lipid panel. Due on 023 due Goal Td vaccine. Due on due Goal Td vaccine. Due on due Goal Lipid panel. Due on due Goal Sigmoidoscopy. Due on due Goal PSA. Due on due Goal Depression screening. Due on due Goal Zoster vaccine. Due on due Goal Tdap. Due on due Goal Influenza vaccine. Due on due Goal Cognitive assessment. Due on due Goal FOBT. Due on due Goal Pneumococcal vaccine. Due on due Goal Influenza vaccine. Due on due Goal Tdap. Due on due Goal Zoster vaccine. Due on due Goal Depression screening. Due on due Goal PSA. Due on due Goal Cognitive assessment. Due on due Goal FOBT. Due on due Goal Pneumococcal vaccine. Due on due Goal Td vaccine. Due on due Goal Lipid panel. Due on due Goal Sigmoidoscopy. Due on due Goal Tdap. Due on due Goal FOBT. Due on due Goal Cognitive assessment. Due on due Goal PSA. Due on due Goal Depression screening. Due on due Goal Influenza vaccine. Due on due Goal Pneumococcal vaccine. Due on due Goal Td vaccine. Due on due Goal Lipid panel. Due on due Goal Sigmoidoscopy. Due on due Goal Zoster vaccine. Due on due Goal Influenza vaccine. Due on due Goal Depression screening. Due on due Goal PSA. Due on due Goal Cognitive assessment. Due on due Goal FOBT. Due on due Goal Tdap. Due on due Goal Pneumococcal vaccine. Due on due Goal Colonoscopy. Due on due Goal Td vaccine. Due on due Goal Lipid panel. Due on due Goal Sigmoidoscopy. Due on due Goal Zoster vaccine. Due on due Goal Influenza vaccine. Due on due Goal Depression screening. Due on due Goal PSA. Due on due Goal Cognitive assessment. Due on due Goal FOBT. Due on due Goal Tdap. Due on due Goal Pneumococcal vaccine. Due on due Goal Colonoscopy. Due on due Goal Td vaccine. Due on due Goal Lipid panel. Due on due Goal Sigmoidoscopy. Due on due Goal Zoster vaccine. Due on due Goal Zoster vaccine. Due on due Goal Sigmoidoscopy. Due on due Goal Lipid panel. Due on due Goal Td vaccine. Due on due Goal Colonoscopy. Due on due Goal Pneumococcal vaccine. Due on due Goal Tdap. Due on due Goal FOBT. Due on due Goal Cognitive assessment. Due on due Goal PSA. Due on due Goal Depression screening. Due on due Goal Influenza vaccine. Due on due Goal Influenza vaccine. Due on due Goal Depression screening. Due on due Goal PSA. Due on due Goal FOBT. Due on due Goal Tdap. Due on due Goal Colonoscopy. Due on due Goal Td vaccine. Due on due Goal Lipid panel. Due on due Goal Sigmoidoscopy. Due on due Goal Zoster vaccine. Due on due Goal Influenza vaccine. Due on Ap due Goal Depression screening. Due on due Goal PSA. Due on due Goal FOBT. Due on due Goal Tdap. Due on due Goal Colonoscopy. Due on due Goal Td vaccine. Due on due Goal Lipid panel. Due on due Goal Sigmoidoscopy. Due on due Goal Zoster vaccine. Due on due Goal Influenza vaccine. Due on Oc due Goal Depression screening. Due on due Goal PSA. Due on due Goal FOBT. Due on due Goal Tdap. Due on due Goal Colonoscopy. Due on due Goal Td vaccine. Due on due Goal Lipid panel. Due on due Goal Sigmoidoscopy. Due on due Goal Zoster vaccine. Due on due Goal Special diet education compl eted Goal Zoster vaccine. Due on due Goal Sigmoidoscopy. Due on due Goal Lipid panel. Due on due Goal Td vaccine. Due on due Goal Colonoscopy. Due on due Goal Tdap. Due on due Goal FOBT. Due on due Goal PSA. Due on due Goal Depression screening. Due on due Goal Influenza vaccine. Due on due Goal Special diet education compl eted Goal Influenza vaccine. Due on due Goal Depression screening. Due on due Goal PSA. Due on due Goal FOBT. Due on due Goal Tdap. Due on due Goal Colonoscopy. Due on 017 due Goal Td vaccine. Due on 17 due Goal Sigmoidoscopy. Due on due Goal Zoster vaccine. Due on due Goal Sigmoidoscopy. Due on due Goal Depression screening. Due on due Goal Zoster vaccine. Due on due Goal PSA. Due on due Goal Td vaccine. Due on 17 due Goal FOBT. Due on due Goal Tdap. Due on due Goal Colonoscopy. Due on 017 due Goal Influenza vaccine. Due on due Goal Influenza vaccine. Due on due Goal Zoster vaccine. Due on due Goal Td vaccine. Due on 16 due Goal PSA. Due on due Goal Colonoscopy. Due on 016 due Goal Depression screening. Due on due Goal Tdap. Due on due Goal FOBT. Due on due Goal Sigmoidoscopy. Due on due Goal Colonoscopy. Due on 016 due Goal Td vaccine. Due on 16 due Goal PSA. Due on due Goal Influenza vaccine. Due on due Goal Depression screening. Due on due Goal Sigmoidoscopy. Due on due Goal Zoster vaccine. Due on due Goal Tdap. Due on due Goal FOBT. Due on due Goal Colonoscopy. Due on 016 due Goal PSA. Due on due Goal Depression screening. Due on due Goal FOBT. Due on due Goal Influenza vaccine. Due on due Goal Sigmoidoscopy. Due on due Goal Td vaccine. Due on 16 due Goal Tdap. Due on due Goal Zoster vaccine. Due on due Goal Colonoscopy. Due on 013 due Goal PSA. Due on due Referral Ordered: Hematology (related to Pulmonary embolism) ordered Referral Ordered: Referrals: Hematology. Evaluate and treat ordered Referral Ordered: CT PULMONARY ordered Referral Ordered: CHEST X-RAY PA/LAT TWO-VIEWS ordered Referral Ordered: Cardiology (related to Encounter for general adult medical examination without abnormal findings) ordered Referral Ordered: Referrals: Cardiology. Evaluate and treat ordered Referral Ordered: COLONOSCOPY AND BIOPSY ordered Referral Ordered: SLEEP STUDY, ATTENDED ordered Referral Ordered: Podiatry (related to Pain in left foot) ordered Referral Ordered: Referrals: Podiatry. Evaluate and treat ordered Referral Ordered: US EXAM, ABDOM, COMPLETE ordered History Of Present Illness Encounter Date Complaint History Of Prese nt Illness back pain1 Pt c/o persisten t dull ache right upper back area for one week Pt did travel to two weeks ago Pt denies any sob or leg pain Pt denies any worsening pain with breathing or movement. Pt has history of right upper lobe PE and he was on eliquis for one year and he stopped 6 months ago. Pt denies any injury HLP Pt has high TG P t eat large portion of breakfast, lunch and dinner every day. he is overweight Pt does drink 5-6 beers per week. HTN Pt has HTN Pt ta kes irbesartan/hctz and his bp is decent. Pt denies any chest pain or headache . physical pt needs annual physical. pt has HTN pt takes norvasc and irbesartan and his bp is borderline high Pt denies any chest pain or headache .Pt has history of one time PE and he was on eliquis for more than 6 months and he is seeing hematology and he was taken off eliquis for almost one year now and he is on ASA only Pt denies any chest pain or sob .Pt c/o intermittent left 2nd MP joint pain and swelling Pt states that aleve does help. Pt denies any injury Pt also c/o left ankle and foot swelling, especially towards end of the day for a while .Pt states that right ankle swells too but not as bad Pt had multiple negative duplex venous doppler ultrasound on left leg without DVT Pt denies any calf pain Pt denies any sob or chest pain. physical Pt needs annual physical Pt has unprovoked Pe and he has been on eliquis until recently .Pt stopped eliquis last week due to possible lupus anticoagulant and he supposes to repeat lab work this Tuesday Pt denies any leg pain or sob or chest pain Pt just had negative leg ultrasound. 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 Pt overall doing well. PE Pt has acute PE right upper lobe with small thrombus burden. Pt has ? travel prior to onset of the symptoms Pt denies any chest pain or sob Pt denies any calf pain Pt started eliquis 10 mg BID x 7 days ago and his right upper back pain almost completely resolved. Pt denies any bleeding HTN Pt has HTn. Pt t akes norvasc and irbesartan and his BP has been slightly elevated recently .Pt is kind of worrying about the clot Pt denies any chest pain or sob upper back pain1 Pt c/o acute on set of right side upper back pain since two weeks ago Pt denies any injury. Pt states that he notices spasm and sharp and dull pain randomly without triggering factor. Pt sometimes notices the twinge of sharp pain when he takes a deep breath. And he also notices positional pain when he lying down at night and can not get comfortable. Pt denies any calf pain Pt denies any chest pain or sob. Pt did drive down to [place] recently but he started to have the pain piror to travel. Pt denies any cough or fever, chill. Pt had chest x ray done which is normal but his d-dimer is elevated . back pain1 Pt c/o acute ons et of right side T spine/upper posterior back pain since two weeks ago Pt denies any injury. Pt states that he notices spasm and sharp and dull pain randomly without triggering factor. Pt sometimes notices the twinge of sharp pain when he takes a deep breath. And he also notices positional pain when he lying down at night and can not get comfortable. Pt denies any calf pain Pt denies any chest pain or sob. Pt did travel to [place] recently but he started to have symptoms prior to the travel. .Pt denies any cough or fever, chill . sleep apnea1 Pt has sleep long winder tender ea Pt denies any fatigue Pt does not want to use cpap. Pt is working on weight loss HLP Pt has been off feno and he has been diet and exercising. colon polyp1 Pt had colonosco py done 3 months ago which showed hyperplastic polyp pt denies any GI issue HTN Pt has HTN Pt ta kes norvasc and irbesartan and his bp is stable. Pt is off spironolactone Pt feels well. his bp is also around 125/70 at home Pt denies any chest pain or headache HTN Pt has HTN pt ta kes irbesartan, norvasc and spironolactone and his bp is very well. He denies any chest pain or headache. HLP Pt has history o f high TG. Pt has been off feno for more than 3 months and his lipid profile is ok. Pt has been diet and exercising. calcium1 Pt has high calc ium. Pt denies any bone pain. Pt had repeat calcium which was normal. Pt has low D. Her ionized calcium and PTH are ok weight loss1 Pt has been inte ntionally losing weight. Pt denies any appetite loss, nausea, vomiting, abd pain, change of bowel, early satiety, etc physical Pt needs annual physical Pt has HTN P takes norvasc, spironolactone and irbesartan and his bp is stable. Pt denies any chest pain or headache. Pt has HLP Pt takes feno .Pt denies any myalgia. Pt has mild sleep apnea Pt denies any fatigue. Pt does not want to use cpap. Pt has fatty liver Pt denies any abd pain. Pt has history of bilateral mild nipple tenderness. Pt denies any breast enlargement .Pt denies any nipple discharge Pt denies any breast nodule or pain or any retraction or any discoloration or any asymmetry. Pt states that all his breast symptoms completely resolved. pt denies any nipple discharge. Pt had normal hormone study. pt has not done colonoscopy yet. Pt has lost some weight with diet and exercise. Pt denies any appetite loss, nausea, vomiting, change of bowel etc physical Pt needs annual physical Pt has HTN P takes norvasc, spironolactone and irbesartan and his bp is stable. Pt denies any chest pain or headache. Pt has HLP Pt takes feno .Pt denies any myalgia. Pt has mild sleep apnea Pt denies any fatigue. Pt does not want to use cpap. Pt has fatty liver Pt denies any abd pain. Pt c/o bilateral mild nipple tenderness during last several months. Pt denies any breast enlargement .Pt denies any nipple discharge Pt denies any breast nodule or pain or any retraction or any discoloration or any asymmetry. PHysical Pt needs annual physical Pt has HTN P takes norvasc, spironolactone and irbesartan and his bp is down to 130/80 Pt denies any chest pain or headache. Pt has HLP Pt takes feno .Pt denies any myalgia. Pt has mild sleep apnea Pt denies any fatigue Pt has fatty liver Pt denies any abd pain. Pt denies any fatigue fatigue1 Pt has been feel ing fatigue when he wakes up in the morning and around afternoon Pt snores sometimes. he denies insomnia Pt denies any trouble with breathing at night HTN Pt has HTn pt gutierrez s been taking irbesartan 300 mg daily and also norvasc and his average BP is 140/80 Pt denies any chest pain or headache Pt denies any leg swelling. HLP Pt has HLP. Pt t akes feno. His TG is improving Pt is working on diet HTN Pt has HTN .Pt t akes irbesartan 300 mg and his bp is still over 160 Pt denies any chest pain or headache Pt denies any snoring or any trouble with sleeping at night or fatigue HTN Pt has HTN, Pt t akes irbesartan 150 mg daily for the past 3 months. Pt states that he has been checking his bp which has been around 155/95 on average without much improvement. Pt denies any chest pain or headache HLP Pt has HP. Pt ta kes feno, PT denies any myalgia colon polyp1 Pt has tubular a denoma on colonoscopy 2016 PT denies any GI issue, pt had negative colonguard prostate CA Pt is s/p total prostatectomy pt denies any urinary symptoms his PSA was zero recently by urology per pt PHysical Pt needs annual physical Pt has history of prostate CA and is s/p total prostatectomy. Pt sees urologist at [facility]. His last PSA was zero 6 months ago. Pt has tubular adenoma on colonoscopy 2016 and he never did fecal globin Pt denies any chest pain or headache. Pt has HLP ,Pt is on feno Pt denies any myalgia Pt has persistent HTN .Pt states that his BP is around 140/90 ,Pt also has fatty liver Pt denies any abd pain High cholesterol. Patient has hy perlipidemia. Patient has mildly elevated triglyceride. His TC is ok. Pt is working on low carb diet. he is cutting down alcohol. He is on feno. Pt denies any myalgia HTN Patient has mild persistent elevated hypertension. Patient denies any chest pain or headache. His BP is 140/80 at home colon polp1 Pt has tubular a denoma. Pt denies any GI bleeding or bowel change Pt denies any unintentional weight loss weight loss1 pt has been work ing on diet and exercise and weight loss Pt has been walking a lot Pt denies any appetite loss, early satiety, nausea, vomiting, early satiety, diarrhea, GI bleeding PHysical Pt needs annual physical. Pt had total prostatectomy due to prostate CA. Pt sees urology at [facility]. Pt had Zero PSA recently. pt denies any ED or any issue. Pt has HLP. Pt takes feno. Pt denies any myalgia. Pt had colonoscopy 2017 which showed tubular adenoma. Pt was told to repeat in 10 years. pt denies any GI issue. pt has HTN. Pt states that his BP is around 130/80 at home Pt denies any chest pain or headache. Pt denies any other complaints. PSA Pt has persisten lty elevated PSA. He states that he has noticed slighlty slow stream recenlty. Pt denies any any difficulty with initiating his urination. Pt denies any dysuria, polyuria, polydipsia. Pt states that he wakes up 1-2 times at night to urinate HLP Pt has HLP.. pt takes feno. His lipid profile is better. His TG is still mildly high. Pt states that he cut off all soda, alcohol, carb, etc. HTN Pt has not been taking diovan for one week. His BP is ok today. pt has been diet and exercising and losing weight. Pt does not want to continue on divoan anymore any this point. Pt denies any chest pain or headache PHysical Pt needs annual physical. Pt takes feno. Pt denies any myalgia. pt has been trying low fat and low carb diet. His TG is slighlty better. Pt denies any urinary symptoms. Pt denies any slow stream or straining. Pt haPt denies any other complaints Liver His LFT is ok. H e has mild fatty liver. He does not have hepatitis HLP Pt has HLP. Pt h as not been taking any meds. Pt is not on any diet. Pt is very inactive heel pain1 Pt c/o left heel pain for 4 months. Pt denies any radiation of pain to rest of foot. pt denies any injury. Pt notices sharp pain, worse wtih activity HTN Pt has normal BP today. Pt denies any chest pain or headache LFT Pt has mildly el evated LFT Pt denies any abd pain. Pt drinks 4-5 beer per week HLP Pt has elevated TG Pt has been taking feno for the last 3 months Pt is trying low fat and low carb diet PHysical Pt needs annual physical. Pt overall feel well. Pt denies any chest apin or headache. His TG is high again. Pt states that he does not eat too much carb. Pt has mild low vitamin D. Pt denies any other complaints Instructions Date Instruction Additional Infor mation Special diet education Related t o Body mass index (BMI) 30.0-30.9, adult Increase activity. Related to Es sential (primary) hypertension Follow a low sodium diet. Relate d to Essential (primary) hypertension Special diet education Related t o Body mass index (BMI) 32.0-32.9, adult Increase activity. Related to En cntr for general adult medical exam w/o abnormal findings Prescribed Activity and Exercise Education Related to Dietary Surveillance and Counseling Prescribed Diet Educ ation/Lifestyle Education Regarding Diet Related to Dietary Surveillance and Counseling Increase activity. Related to Hy perlipidemia Follow a low sodium diet. Relate d to Hyperlipidemia Prescribed Activity and Exercise Education Related to Dietary Surveillance and Counseling Prescribed Diet Educ ation/Lifestyle Education Regarding Diet Related to Dietary Surveillance and Counseling Prescribed Activity and Exercise Education Related to Dietary Surveillance and Counseling Prescribed Diet Educ ation/Lifestyle Education Regarding Diet Related to Dietary Surveillance and Counseling Prescribed Activity and Exercise Education Related to Dietary Surveillance and Counseling Prescribed Diet Educ ation/Lifestyle Education Regarding Diet Related to Dietary Surveillance and Counseling Dietary counseling Related to Di etary surveillance counseling Decrease caloric intake Related to Dietary surveillance counseling Dietary counseling Related to Di etary surveillance counseling Decrease caloric intake Related to Dietary surveillance counseling Dietary counseling Related to Di etary surveillance counseling Decrease caloric intake Related to Dietary surveillance counseling Dietary counseling Related to Di etary surveillance counseling Decrease caloric intake Related to Dietary surveillance counseling Assessments Type Assessment Date assessment Ant chest-wall pain assessment Pulmonary embolism Mental Status Date Cognitive Assessment Orientation - [place] ed to time, place, person, situation.
--- OUTSIDE RECORDS SUMMARY | 2025-02-19 11:44 | XMS_ITS | Clinical Summary ---
Author Organization [facility] Address [address] [place] [address] Care Team Providers Care Cordwood Cutter Name Role Phone Zhao Mayes MD Primary Care Provider Allergies Active Allergy Reactions Criticality Noted Date Comments Brimonidine-Timolol Redness Low 10/24/2018 Also causes burning Netarsudil Redness Low 10/24/2018 Also causing burning Medications aspirin 81 mg tabletIndicatio ns:heart health Take 81 mg by mouth spar machine operator before breakfast Active fenofibrate (TRIGLIDE) 160 mg tabletIndicatio ns:hyperlipidem ia Take 160 mg by mouth daily with breakfast Active amLODIPine (NORVASC) 10 mg tabletIndicatio ns:hypertension Take 10 mg by mouth spar machine operator before breakfast 1 Active spironolactone (ALDACTONE) 50 mg tabletIndicatio ns:hypertension Take 50 mg by mouth spar machine operator before breakfast 1 Active irbesartan (AVAPRO) 300 mg tabletIndicatio ns:hypertension Take 300 mg by mouth spar machine operator before breakfast 1 Active Sutab 1.479-0.188- 0.225 [...] cost Assessment & Plan (11/26/2021 12:02 PM SALES ATTENDANT BUILDING MATERIALS): IOP OD too high, XEN OS looks [...] BID Assessment & Plan (11/26/2021 12:02 PM SALES ATTENDANT [employer]ILD[employer]): RBA needling OD discussed. Assessment & Plan (10/15/2021 10:02 AM SALES ATTENDANT [employer]ILD[employer]ERIALS): Presents for HVF/OCT with ganglion cell layer [...] CPmeds Assessment & Plan (10/15/2021 9:52 AM SALES ATTENDANT BUILDING [employer]ERIALS): Assessment & Plan (06/23/2021 7:50 AM CDT): [...] GCL Assessment & Plan (07/29/2020 9:57 AM SALES ATTENDANT [employer]ILD[employer]ERIALS): IOP now near goal OU on cosopt [...] lumigan Assessment & Plan (11/22/2019 8:00 AM SALES ATTENDANT [employer]ILD[employer]ERIALS): POD1 Xen MMC OS Postoperative instructions were [...] lumigan Assessment & Plan (09/04/2019 2:19 PM SALES ATTENDANT [employer]ILDING [employer]ERIALS): OD: S/p open conj XEN 01/17/19 Off [...] well at next visit. Prostate cancer 03/03/2018 Surgical History Surgery Date Site/Laterality Comments KNEE SURGERY 09/19/1992 - 09/18/1993 Right Meniscus MELANOMA RESECTION 09/19/2010 - 09/18/2011 upper back RADICAL PROSTATECTOMY 02/17/2018 - 03/18/2018 Faith 7, teritary 5, pT3 with DIANE, margins negative HERNIA REPAIR 09/19/1992 - 09/18/1993 abdominal hernia SHUNT EXTERNALIZATION 11/21/2019 Left XEN/MMC SHUNT EXTERNALIZATION 01/27/2022 Right Molteno Medical History Medical History Date Comments Glaucoma Hyperlipidemia Prostate cancer (HCC) Melanoma (HCC) HTN (hypertension) Obesity Cataract Sleep apnea Family History Medical History Relation Name Comments Heart disease Father fatal [place] age 6 8 Anesthesia problems Neg Hx Bleeding Disorder Neg Hx Relation Name Status Comments Father Mother Social History Tobacco Use Types Packs/Day Years [...] on file Sexual Orientation Not on file Obstetrics History Last Filed Vital Signs Vital Sign Reading [...] 01/18/2022 9:35 AM CDT Plan of Treatment Health Maintenance Due Date Last Done Comments Colon Cancer Screening-Colonoscopy 1955 Depression Screening 1955 Hepatitis C Screening 1955 Hepatitis B Screening 1973 Pneumococcal vaccine 65+ (1 of 1 - PCV) 2005 Zoster Vaccine (1 of 2) 2005 Abdominal Aortic Aneurysm (A AA) Screen 2020 Well Visit 65+ 2020 Fall Risk Assessment 01/27/2023 01/27/2022 DTaP/Tdap/Td Vaccine (2 - Td or Tdap) 09/20/2023 09/20/2013 Covid-19 Vaccine (3 - 2023-2 5 season) 2024 11/29/2020, 10/31/2020 Prostate Cancer Screening-PSA 02/03/2025, 05/29/2021, 03/12/2020, Additional history exists Influenza Vaccine (Season Ended) 2025 09/20/19 14 Medical Devices Implanted Type Area Awning Craftsman Device Identifier Shelf Expiration Date Model / Serial / Lot [employer] 5513-001 Xen 150um 45um 6mm Treatment System Preload Injector Intraocular Latex Free - [id number] - [id number] Implanted:Qty: 1 on 01/17/2019 by Ian Londono MD at [facility] Other - see comments Right: Eye [employer] [id number] 05/19/2021 5513-001 / [id number] / [id number] Description:Xen Gel stent [employer] 5513-001 Xen 150um 45um 6mm Treatment System Preload Injector Intraocular Latex Free - [id number] - [id number] Implanted:Qty: 1 on 11/21/2019 by Ian Londono MD at [facility] Other - see comments Left: Eye [employer] [id number] 07/19/2022 5513-001 / [id number] / [id number] Description:XEN GEL STENT [employer] Molteno3 245sq Mm Drain Glaucoma M3-245 - [id number] - [id number] Implanted:Qty: 1 on 01/27/2022 by Ian Londono MD at [facility] Other - see comments Right: Eye [employer] [id number] 04/29/2026 M3-245 / [id number] / [id number] Description:Molteno drainage device [employer] Tutoplast Iopatch 1x.6cm Dehydrate Processed Allograft Graft Soft [id number] - [id number] - [id number] Implanted:Qty: 1 on 01/27/2022 by Ian Londono MD at [facility] Other - see comments Right: Eye [employer] 06/18/2026 [id number] / [id number] / [id number] Explanted Type Area Awning Craftsman Device Identifier Shelf Expiration Date Model / Serial / Lot Allergan [employer] 5513-001 Xen 150um 45um 6mm Treatment System Preload Injector Intraocular Latex Free - [id number] - [id number] Implanted:Qty: 1 Explanted:Qty: 1 on 01/17/2019 by Ian Londono MD at [facility] Shunt Right: Eye [employer] [id number] 09/18/2021 5513-001 / [id number] / [id number] Procedures Procedure Name Priority Date/Time Associated Diagnosis Comments PSA DIAGNOSTIC Routine 02/03/2023 10:22 AM CDT Prostate cancer (HCC) from Last 3 Months or Most Recently Relevant to Health Maintenance Results * PSA diagnostic (02/03/2023 10:22 AM CDT) PSA <0.1 0.0 - 4.0 ng/mL [facility] - Comment: Reinaldo ECLIA methodology. According to the [place] [employer], Serum PSA should decrease and [...] Blood 02/03/2023 10:2 2 AM CDT 02/03/2023 [facility] - 02/04/2023 11:07 PM CDT Performed at: [address] [id number] Motorboat Mechanic Helper: Tavon Castaneda PhD, Phone: [phone] Roland Le MD LAB BLOOD ORDERABLES Final Res ult [facility] - 01 from Last 3 Months or Most Recently Relevant to Health Maintenance Insurance [facility] [place] [address] CHOICE PLUS [facility] [employer]ET[employer] MEDICARE Advance Directives For more information, please contact: [phone] * Full Code (Latest Code Status on File) Date Activated Date Inactivated Comments 11/20/2019 10:21 PM 11/21/2019 6:44 PM * Full Code Date Activated Date Inactivated Comments 03/02/2018 10:07 AM 03/03/2018 4:29 PM Care Teams Cordwood Cutter Relationship Specialty Start Date End Date Zhao Mayes MD PCP - General 01/02/18
--- OUTSIDE RECORDS SUMMARY | 2025-02-19 11:44 | XMS_ITS | Encounter Summary ---
Author Organization [facility] Address [address] [place] [address] Phone Care Team Providers Care Biological Sciences Instructor Name Role Phone Zhao Mayes Primary Care Provider [phone] Jostin Washburn MD Unavailable Reason for Visit * Reason Comments Medication Refill Encounter Details Date Type Department Care Team (Late st Contact Info) Description 11/02/2023 Refill [facility] [address] [place] [id number] Jostin Washburn MD [address] [place] [id number] Medication Refill Social History Tobacco Use Types Packs/Day Years Used Date Smoking Tobacco: Former Cigarettes Q uit: 2000 Smokeless Tobacco: Never Alcohol Use Standard Drinks/Week Comments Yes 4 (1 standard drink = 0.6 oz pur e alcohol) Sex and Gender Information Value Date Recorded Sex Assigned at Not on file Legal Sex Male 11:35 AM CDT Gender Identity Not on file Sexual Orientation Not on file documented as of this encounter Plan of Treatment Not on file documented as of this encounter Visit Diagnoses Not on filedocumented in this encounter Care Teams Biological Sciences Instructor Relationship Specialty Start Date End Date Zhao Mayes [address] [place] [address] PCP - General Family Medicine 04/19/23 Jostin Washburn MD [address] [place] [address] Consulting Physician Oncology 10/11/24 documented as of this encounter
[2025-02-19 12:20] LABS: Estimated Glomerular Filt Rate 60
== END 2025-02-19 11:38 | disposition home or self-care (01) ==
PROVIDERS: PCP Emergency Medicine; Visit Provider Emergency Medicine
DX: R07.9 Chest pain, unspecified (principal); Z86.711 Personal history of pulmonary embolism
CPT/HCPCS: 71275; Q9967